=== PATIENT | female | born 1965 | race Caucasian/White ===

== ENCOUNTER 2022-05-09 08:40 | Outpatient (REF) | payer BC, SELFPAY ==
[2022-05-09 08:53] LABS: MANUAL DIFF FLAG NO
[2022-05-09 09:14] LABS: Basophils Percent Auto 0.4 % (0-2); Eosinophils Absolute Auto 0.2 X10*3/uL (0.0-0.4); Hemoglobin 14.3 g/dl (12.0-16.0); Imm Gran Abs Auto 0.02 X10*3/uL (0.00-0.03); Imm Gran Pct Auto 0.4 % (0.0-0.4); Lymphocytes Absolute Auto 1.6 X10*3/uL (1.2-4.9); Lymphocytes Percent Auto 27.7 % (20-40); Mean Corpuscular HGB Conc 33.3 g/dl (31.0-35.0); Mean Corpuscular Hemoglobin 28.9 pg (27.0-33.0); Mean Corpuscular Volume 86.9 fL (80.0-98.0); Mean Platelet Volume 10.1 fL (9.4-12.3); Monocytes Absolute Auto 0.4 X10*3/uL (0.1-1.2); Neutrophils Absolute Auto 3.5 x10*3/uL (2.0-8.3); Neutrophils Percent Auto 60.5 % (45-73); Platelet Count 171 X10*3/uL (160-400); Red Blood Count 4.95 X10*6/uL (4.20-5.50); Red Cell Distribution Width 13.1 % (11.0-16.0); White Blood Count 5.7 X10*3/uL (4.8-10.8)
[2022-05-09 09:50] LABS: Alanine Aminotransferase 25 U/L (0-31); Albumin Level 4.5 g/dL (3.5-5.0); Alkaline Phosphatase 84 U/L (39-117); Anion Gap 14 (12-20); Aspartate Amino Transferase 22 U/L (5-31); Bilirubin Total 0.7 mg/dL (0.0-1.0); Blood Urea Nitrogen 19 mg/dL (9-16); Calcium 9.3 mg/dL (8.4-10.2); Carbon Dioxide 28 mmol/L (22-29); Chloride 103 mmol/L (96-108); Cholesterol 259 mg/dL; Estimated Glomerular Filt Rate > 60; Glucose Fasting 101 mg/dL (60-99); HDL Cholesterol 45 mg/dL; LDL Cholesterol Calculated 170 mg/dl; Potassium 4.5 mmol/L (3.3-5.1); Sodium 140 mmol/L (135-145); Triglycerides 223 mg/dL
[2022-05-09 10:09] LABS: Thyroid Stimulating Hormone 0.97 uIU/mL (0.32-4.0)
== END 2022-05-09 08:41 | disposition home or self-care (01) ==
LOC: HO.LAB 08:40
PROVIDERS: PCP Internal Medicine; Visit Provider Internal Medicine
DX: E03.9 Hypothyroidism, unspecified (principal); E78.5 Hyperlipidemia, unspecified; I10 Essential (primary) hypertension; Z13.0 Encounter for screening for diseases of the blood and blood-forming organs and certain disorders involving the immune mechanism
CPT/HCPCS: 36415; 80053; 80061; 84443; 85025

== ENCOUNTER 2022-09-14 09:39 | Outpatient (AMB) | payer BC, SELFPAY ==
[2022-09-14 09:41] VITALS: BP 132/80; PULSE 62; O2SAT 95; BMI 31.6
--- NOTE | 2022-09-14 09:41 | A.OFFPC_ITS ---
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 Accompanied by: Self / Same As Patient Allergies cephalexin [From KEFLEX] Allergy (Intermediate, Verified 09/14/22 09:41) HIVES Medication List - Last Reconciled 09/14/22 by Velasquez Storm MD citalopram 20 mg PO DAILY cyclobenzaprine 5 mg PO TID PRN levothyroxine 125 mcg PO DAILY triamterene-hydrochlorothiazid 37.5-25 mg 1 tab PO DAILY Tobacco use date assessed: 09/14/22 Dental Screening Dental Screen Date: 09/14/22 Did you have a dental visit in the last 12 months?: Yes Did you have a dental problem in the last 6 months where you did not have access to dental care?: No Was dental information given to patient?: Patient has dentist HPI Rash on left side of left leg HPI Details rash on leg for a year [facility] Surgical History History of cholecystectomy Social History Housing: House Alcohol intake: current Alcohol intake frequency: a few times a month Patient Tobacco Use Status: Never used Tobacco e-Cigarette/Vaping Use: Never Used Second Hand Smoke Exposure: No service: No Current occupational status: employed 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 1. Little interest or pleasure in doing things: not at all 2. Feeling down, depressed, or hopeless: not at all 3. Trouble falling or staying asleep, or sleeping too much: not at all 4. Feeling tired or having little energy: not at all 5. Poor appetite or overeating: not at all 6. Feeling bad about yourself - or that you are a failure or have let yourself or your family down: not at all 7. Trouble concentrating on things, such as reading the newspaper or watching television: not at all 8. Moving or speaking so slowly that other people could have noticed. Or the opposite - being so fidgety or restless that you have been moving around a lot more than usual: not at all 9. Thoughts that you would be better off or of hurting yourself in some way: not at all Total score: 0 Depression Screening Interpretation: Negative Source: Developed by Drs. Han Randhawa, Samantha Ghosh, Blake Ewing and colleagues, with an educational esther from [employer]. Thrive Questionnaire Date Thrive assessed: 09/14/22 I am a: Patient What is your living situation today?: I have a steady place to live Within the past 12 months, did the food you bought not last and you didn't have the money to get more?: Never true Within the past 12 months, did you worry whether your food would run out before you got money to buy more?: Never true Do you have trouble paying for medicines?: No Do you have trouble getting transportation to medical appointments?: No Do you have trouble paying your heating and electricity bill?: No Do you have trouble taking care of your child, family member or friend?: No Do you have trouble with day-to-day activities such as bathing, preparing meals, shopping, managing finances, etc.?: No Are you currently unemployed and looking for a job?: No Are you interested in more education?: No Please select the resources that you would like help with: None Currently or been in a relationship where the following occur: no concerns reported AUDIT C Alcohol Use Questionnaire (AUDIT-C) 1. How often do you have a drink containing alcohol?: Monthly or less Total Score: 1 Score Reviewed/Action Taken: Yes IDALIA-7 AMB Questionnaire IDALIA-7 Date IDALIA - 7 assessed: 09/14/22 Feeling nervous, anxious, or on edge: 0 = Not at all Not being able to stop or control worryin = Not at all Worrying too much about different things: 0 = Not at all Trouble relaxin = Not at all Being so restless that it is hard to sit still: 0 = Not at all Becoming easily annoyed or irritable: 0 = Not at all Feeling afraid as if something awful might happen: 0 = Not at all Total IDALIA-7 score (0-4 normal; 5-9 mild; 10-14 moderate; 15-21 severe): 0 Source: Developed by Drs. Han Randhawa, Samantha Ghosh, Blake Ewing and colleagues, with an educational esther from [employer]. Review of Systems Const Denies chills, Denies headache(s) and Denies weight loss ENT Denies headache(s) Card Denies chest pain, Denies syncope, Denies irregular heart rhythm and Denies dyspnea Resp Denies chest congestion, Denies cough and Denies dyspnea GI Denies abdominal pain, Denies change in stool character, Denies nausea and Denies vomiting Musc Denies deformity and Denies joint swelling Neuro Denies syncope and Denies headache(s) Physical exam (Primary Care) Vital Signs: Last Vital Signs Pulse 62 09/14/22 09:41 BP 132/80 09/14/22 09:41 Pulse Ox 95 09/14/22 09:41 Oxygen Delivery Method Room Air 09/14/22 09:41 BMI result Body Mass Index 31.6 Tobacco/Smoking Status: Tobacco use Status Tobacco use date assessed 09/14/22 09/14/22 09:45 Patient Tobacco Use Status Never used Tobacco 09/14/22 09:45 e-Cigarette/Vaping Use Never Used 09/14/22 09:45 PHQ-9: PHQ-9 Score PHQ-9: Total score 0 09/14/22 09:45 Depression Screening Interpretation: Negative Thrive Assessment: Date of Thrive Assessment Date Thrive assessed 09/14/22 09/14/22 09:45 Currently or been in a relationship where the following occur: no concerns reported Const General: cooperative, comfortable and no acute distress Chest Chest palpation & inspection: normal inspection of the chest Resp Effort & Inspection: normal respiratory effort Auscultation: clear to auscultation bilaterally Percussion: percussion normal Cardio Jugular venous distension: no JVD Rate: regular rate Rhythm: regular rhythm Skin Other: extensive rash left leg with pustules Assessment and Plan Assessment & Plan (1) Pustular rash: Code(s): L08.0 - Pyoderma Plan: rx and derm Orders: Referrals Dermatology Referral L08.0 - Pyoderma Medications: New clotrimazole-betamethasone 1-0.05 % 1 appl topical BID 45 grams 2RF 2 weeks azithromycin take 500 mg today (day 1), then 250 mg for 4 days (days 2-5) PO 6 tabs 0RF Coding Level of Care Code Est Pt Level 3 (38306) Diagnoses Pustular rash L08.0 Additional Codes PHQ-9 - 49804 - PHQ-9 Billing: Y ([id number])
== END 2022-09-14 09:57 | disposition home or self-care (01) ==
PROVIDERS: PCP Internal Medicine; Visit Provider Internal Medicine
DX: L08.0 Pyoderma (principal)
CPT/HCPCS: 99213

== ENCOUNTER 2022-12-28 14:26 | Outpatient (AMB) | payer BC, SELFPAY ==
--- NOTE | 2022-12-28 14:27 | A.OFFPC_ITS ---
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 Accompanied by: Self / Same As Patient Allergies cephalexin [From KEFLEX] Allergy (Intermediate, Verified 12/28/22 14:30) HIVES Medication List - Last Reconciled 12/29/22 by Velasquez Storm MD azithromycin take 500 mg today (day 1), then 250 mg for 4 days (days 2-5) PO citalopram 20 mg PO DAILY clotrimazole-betamethasone 1-0.05 % 1 appl topical BID 2 weeks cyclobenzaprine 5 mg PO TID PRN levothyroxine 125 mcg PO DAILY triamterene-hydrochlorothiazid 37.5-25 mg 1 tab PO DAILY Tobacco use date assessed: 09/14/22 Dental Screening Dental Screen Date: 12/28/22 Did you have a dental visit in the last 12 months?: Yes Did you have a dental problem in the last 6 months where you did not have access to dental care?: No Was dental information given to patient?: Patient has dentist HPI Annual exam HPI Details hypothyroidism hypertension and depression on rx; doing well [facility] Surgical History History of cholecystectomy Social History Housing: House Alcohol intake: current Alcohol intake frequency: a few times a month Patient Tobacco Use Status: Never used Tobacco e-Cigarette/Vaping Use: Never Used Second Hand Smoke Exposure: No service: No Current occupational status: employed 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 1. Little interest or pleasure in doing things: not at all 2. Feeling down, depressed, or hopeless: not at all 3. Trouble falling or staying asleep, or sleeping too much: not at all 4. Feeling tired or having little energy: not at all 5. Poor appetite or overeating: not at all 6. Feeling bad about yourself - or that you are a failure or have let yourself or your family down: not at all 7. Trouble concentrating on things, such as reading the newspaper or watching television: not at all 8. Moving or speaking so slowly that other people could have noticed. Or the opposite - being so fidgety or restless that you have been moving around a lot more than usual: not at all 9. Thoughts that you would be better off or of hurting yourself in some way: not at all Total score: 0 Depression Screening Interpretation: Negative Depression Screening Done: Yes 65551 - PHQ-9 Billing: Yes Source: Developed by Drs. Han Randhawa, Samantha Ghosh, Blake Ewing and colleagues, with an educational esther from [employer]. Thrive Questionnaire Date Thrive assessed: 09/14/22 AUDIT C Alcohol Use Questionnaire (AUDIT-C) 1. How often do you have a drink containing alcohol?: Monthly or less Total Score: 1 Score Reviewed/Action Taken: Yes IDALIA-7 AMB Questionnaire IDALIA-7 Date IDALIA - 7 assessed: 09/14/22 Source: Developed by Drs. Han Randhawa, Samantha Ghosh, Blake Ewing and colleagues, with an educational esther from [employer]. Review of Systems Const Denies chills, Denies fatigue, Denies headache(s) and Denies weight loss Eyes Denies change in vision, Denies diplopia and Denies eye pain ENT Denies vertigo, Denies dizziness, Denies headache(s) and Denies nasal discharge Card Denies chest pain, Denies rapid heart rate and Denies dyspnea on exertion Resp Denies chest congestion, Denies cough, Denies pain with cough and Denies dyspnea on exertion GI Denies abdominal pain, Denies hematochezia and Denies change in bowel habits Musc Denies myalgias, Denies arthralgias and Denies joint swelling Skin/Breast Denies lesions and Denies unusual bruising Neuro Denies vertigo, Denies dizziness, Denies headache(s) and Denies focal weakness Endo Denies fatigue Physical exam (Primary Care) Vital Signs: Last Vital Signs Pulse 72 12/28/22 14:30 BP 120/68 12/28/22 14:30 Pulse Ox 97 12/28/22 14:30 Oxygen Delivery Method Room Air 12/28/22 14:30 BMI result Body Mass Index 31.6 Tobacco/Smoking Status: Tobacco use Status Tobacco use date assessed 09/14/22 12/28/22 14:28 Patient Tobacco Use Status Never used Tobacco 12/28/22 14:28 e-Cigarette/Vaping Use Never Used 12/28/22 14:28 PHQ-9: PHQ-9 Score PHQ-9: Total score 0 12/28/22 14:34 Depression Screening Interpretation: Negative Thrive Assessment: Date of Thrive Assessment Date Thrive assessed 09/14/22 12/28/22 14:28 Const General: cooperative, healthy appearing and no acute distress Orientation/consciousness: oriented to person, oriented to place and oriented to time HENMT Head: Yes normal to inspection, Yes normocephalic and Yes atraumatic Mouth: Normal oral and palatal mucosa present and tongue normal Throat: Yes posterior oropharynx normal and Yes uvula midline Eyes General: appearance normal, both eyes and all related structures Neck Neck: Yes normal visual inspection, Yes full ROM and Yes no lymphadenopathy Thyroid: Thyroid normal Carotids: normal carotid upstroke Chest Chest palpation & inspection: normal inspection of the chest Resp Effort & Inspection: normal respiratory effort and able to speak in complete sentences Auscultation: clear to auscultation bilaterally Cardio Jugular venous distension: no JVD Palpation: normal PMI Rate: regular rate Rhythm: regular rhythm Heart sounds: S1 normal heart sound present and S2 normal heart sound present GI Inspection: Yes normal to inspection Palpation (GI): Soft to palpation and No hepatosplenomegaly present Auscultation: normal bowel sounds General: Yes no CVA tenderness Back/Spine/Pelvis Back: no CVA tenderness Skin General skin exam: no rashes or lesions noted Neuro General: oriented to person, oriented to place and oriented to time Extrem General: Yes normal to inspection and Yes full ROM Assessment and Plan Assessment & Plan (1) Physical exam: Code(s): Z00.00 - Encounter for general adult medical examination without abnormal findings (2) Hypothyroidism: Code(s): E03.9 - Hypothyroidism, unspecified Plan: stable; same rx (3) Hypertension: Code(s): I10 - Essential (primary) hypertension Plan: stable; same rx (4) Depression: Code(s): F32.A - Depression, unspecified Plan: stable; same rx Orders: Orders Complete Blood Count Auto Diff Today D64.9 - Anemia, unspecified Comprehensive [place]. Panel Fast Today N28.9 - Disorder of kidney and ureter, unspecified Lipid Panel Today E78.5 - Hyperlipidemia, unspecified Thyroid Stimulating Hormone Today E03.9 - Hypothyroidism, unspecified MM tomosynthesis screen imp BI Today Z12.31 - Encounter for screening mammogram for malignant neoplasm of breast Medications: Refilled clotrimazole-betamethasone 1-0.05 % 1 appl topical BID 45 grams 2RF 2 weeks Coding Level of Care Code Est Pt Prev Care 40-64y(22322) Diagnoses Physical exam Z00.00 Hypothyroidism E03.9 Hypertension I10 Depression F32.A
[2022-12-28 14:30] VITALS: BP 120/68; PULSE 72; O2SAT 97; BMI 31.6
== END 2022-12-28 14:49 | disposition home or self-care (01) ==
PROVIDERS: PCP Internal Medicine; Visit Provider Internal Medicine
DX: Z00.00 Encounter for general adult medical examination without abnormal findings (principal); E03.9 Hypothyroidism, unspecified; I10 Essential (primary) hypertension; F32.A Depression, unspecified
CPT/HCPCS: 99396

== ENCOUNTER 2024-01-10 13:50 | Outpatient (AMB) | payer BC, SELFPAY ==
--- NOTE | 2024-01-10 13:39 | A.OFFVIS_ITS ---
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
--- NOTE | 2024-01-10 13:53 | MHC.PC.OV ---
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 Director Digital Marketing: Not Required per policy Accompanied by: Self / Same As Patient Allergies cephalexin [From KEFLEX] Allergy (Intermediate, Verified 01/10/24 13:54) HIVES Medication List - Last Reconciled 01/11/24 by Velasquez Storm MD citalopram 20 mg PO DAILY clotrimazole-betamethasone 1-0.05 % 1 appl topical BID 2 weeks cyclobenzaprine 5 mg PO TID PRN levothyroxine 125 mcg PO DAILY triamterene-hydrochlorothiazid 37.5-25 mg 1 tab PO DAILY Tobacco use date assessed: 01/10/24 Dental Screening Dental Screen Date: 01/10/24 Did you have a dental visit in the last 12 months?: Yes Did you have a dental problem in the last 6 months where you did not have access to dental care?: No Was dental information given to patient?: Patient has dentist HPI annual HPI Details hypothyroidism on rx; doing well; due for [facility] Surgical History History of cholecystectomy Social History Housing: House Alcohol intake: current Alcohol intake frequency: a few times a month Patient Tobacco Use Status: Never used Tobacco e-Cigarette/Vaping Use: Never Used Second Hand Smoke Exposure: No service: No Current occupational status: employed 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 1. Little interest or pleasure in doing things: not at all 2. Feeling down, depressed, or hopeless: not at all 3. Trouble falling or staying asleep, or sleeping too much: nearly every day 4. Feeling tired or having little energy: nearly every day 5. Poor appetite or overeating: several days 6. Feeling bad about yourself - or that you are a failure or have let yourself or your family down: not at all 7. Trouble concentrating on things, such as reading the newspaper or watching television: not at all 8. Moving or speaking so slowly that other people could have noticed. Or the opposite - being so fidgety or restless that you have been moving around a lot more than usual: not at all 9. Thoughts that you would be better off or of hurting yourself in some way: not at all Total score: 7 Depression Screening Interpretation: Positive Depression Screening Done: Yes Source: Developed by Drs. Han Randhawa, Samantha Ghosh, Blake Ewing and colleagues, with an educational esther from [employer]. Thrive Questionnaire Date Thrive assessed: 01/10/24 I am a: Patient What is your living situation today?: I have a steady place to live Within the past 12 months, did the food you bought not last and you didn't have the money to get more?: Never true Within the past 12 months, did you worry whether your food would run out before you got money to buy more?: Never true Do you have trouble paying for medicines?: No Do you have trouble getting transportation to medical appointments?: No Do you have trouble paying your heating and electricity bill?: No Do you have trouble taking care of your child, family member or friend?: No Do you have trouble with day-to-day activities such as bathing, preparing meals, shopping, managing finances, etc.?: No Are you currently unemployed and looking for a job?: No Are you interested in more education?: No Please select the resources that you would like help with: None Currently or been in a relationship where the following occur: No concerns reported THRIVE Score: 0 AUDIT C Alcohol Use Questionnaire (AUDIT-C) 1. How often do you have a drink containing alcohol?: 2-3 times a week 2. How many drinks containing alcohol do you have on a typical day when you are drinking?: 3 or 4 3. How often do you have six or more drinks on one occasion?: Less than monthly Total Score: 5 IDALIA-7 AMB Questionnaire IDALIA-7 Date IDALIA - 7 assessed: 01/10/24 Feeling nervous, anxious, or on edge: 0 = Not at all Not being able to stop or control worryin = Not at all Worrying too much about different things: 0 = Not at all Trouble relaxin = Not at all Being so restless that it is hard to sit still: 0 = Not at all Becoming easily annoyed or irritable: 1 = Several days Feeling afraid as if something awful might happen: 0 = Not at all Total IDALIA-7 score (0-4 normal; 5-9 mild; 10-14 moderate; 15-21 severe): 1 Source: Developed by Drs. Han Randhawa, Samantha Ghosh, Blake Ewing and colleagues, with an educational esther from [employer]. Review of Systems Const Denies chills, Denies fatigue, Denies headache(s) and Denies weight loss Eyes Denies change in vision, Denies diplopia and Denies eye pain ENT Denies vertigo, Denies dizziness, Denies headache(s) and Denies nasal discharge Card Denies chest pain, Denies rapid heart rate and Denies dyspnea on exertion Resp Denies chest congestion, Denies cough, Denies pain with cough and Denies dyspnea on exertion GI Denies abdominal pain, Denies hematochezia and Denies change in bowel habits Musc Denies myalgias, Denies arthralgias and Denies joint swelling Skin/Breast Denies lesions and Denies unusual bruising Neuro Denies vertigo, Denies dizziness, Denies headache(s) and Denies focal weakness Endo Denies fatigue Physical exam (Primary Care) Vital Signs: Last Vital Signs Pulse 62 01/10/24 13:54 BP 112/72 01/10/24 13:54 Pulse Ox 97 01/10/24 13:54 Oxygen Delivery Method Room Air 01/10/24 13:54 BMI result Body Mass Index 30.4 Tobacco/Smoking Status: Tobacco use Status Tobacco use date assessed 01/10/24 01/10/24 13:58 Patient Tobacco Use Status Never used Tobacco 01/10/24 13:58 e-Cigarette/Vaping Use Never Used 01/10/24 13:58 PHQ-9: PHQ-9 Score PHQ-9: Total score 7 01/10/24 14:05 Depression Screening Interpretation: Positive Thrive Assessment: Date of Thrive Assessment Date Thrive assessed 01/10/24 01/10/24 13:58 Currently or been in a relationship where the following occur: No concerns reported Const General: cooperative, healthy appearing and no acute distress Orientation/consciousness: oriented to person, oriented to place and oriented to time HENMT Head: Yes normal to inspection, Yes normocephalic and Yes atraumatic Mouth: Normal oral and palatal mucosa present and tongue normal Throat: Yes posterior oropharynx normal and Yes uvula midline Eyes General: appearance normal, both eyes and all related structures Neck Neck: Yes normal visual inspection, Yes full ROM and Yes no lymphadenopathy Thyroid: Thyroid normal Carotids: normal carotid upstroke Chest Chest palpation & inspection: normal inspection of the chest Resp Effort & Inspection: normal respiratory effort and able to speak in complete sentences Auscultation: clear to auscultation bilaterally Cardio Jugular venous distension: no JVD Palpation: normal PMI Rate: regular rate Rhythm: regular rhythm Heart sounds: S1 normal heart sound present and S2 normal heart sound present GI Inspection: Yes normal to inspection Palpation (GI): Soft to palpation and No hepatosplenomegaly present Auscultation: normal bowel sounds General: Yes no CVA tenderness Back/Spine/Pelvis Back: no CVA tenderness Skin General skin exam: no rashes or lesions noted Neuro General: oriented to person, oriented to place and oriented to time Extrem General: Yes normal to inspection and Yes full ROM Office Procedures Flu Questionnaire Does the patient have a severe egg allergy?: No Does the patient have severe life threatening allergies?: No Does the patient have a fever or illness today?: No Has the patient ever had Guillain-Tornado Syndrome?: No Has the patient ever had any past reaction to a flu shot?: No Immunizations Fluarix Triv 3754-2367 (PF) 45 mcg (15 mcg x 3)/0.5 mL IM syringe Performing Provider: Velasquez Storm MD [facility] [place] [facility] Administered by: BRIANDA Licea on 01/10/24 14:05 Dose Route Admin Location Dispensed Lot Number Expiration Date FORMERLY NAMED [facility] Outside Sales Engineer 0.5 mL IM Left Deltoid 0.5 mL [id number] 09/02/24 [id number] [place] VIS Given Date VIS Provided VIS Publication Date 01/10/24 Single Vaccine 20 Eligibility Eligibility Date Funding Source Not [facility] Eligible 11/06/24 Private Coding Level of Care Code Est Pt Prev Care 40-64y(50821) Diagnoses Physical exam Z00.00 Hypothyroidism E03.9 Assessment & Plan Assessment & Plan (1) Physical exam: Code(s): Z00.00 - Encounter for general adult medical examination without abnormal findings Category: Medical Plan: stable; same rx (2) Hypothyroidism: Code(s): E03.9 - Hypothyroidism, unspecified Category: Medical Plan: same rx Orders: Orders Complete Blood Count Auto Diff 01/10/24 Z13.0 - Encounter for screening for diseases of the blood and blood-forming organs and certain disorders involving the immune mechanism Comprehensive [place]. Panel Fast 01/10/24 Z13.9 - Encounter for screening, unspecified Lipid Panel 01/10/24 Z13.220 - Encounter for screening for lipoid disorders Thyroid Stimulating Hormone 01/10/24 Z13.29 - Encounter for screening for other suspected endocrine disorder Influenza [id number] Immunization 01/10/24 Z23 - Encounter for immunization
[2024-01-10 13:54] VITALS: BP 112/72; PULSE 62; O2SAT 97; BMI 30.4
== END 2024-01-10 14:06 | disposition home or self-care (01) ==
LOC: HO.HMCH 13:50
PROVIDERS: PCP Internal Medicine; Visit Provider Internal Medicine
DX: Z00.00 Encounter for general adult medical examination without abnormal findings (principal); E03.9 Hypothyroidism, unspecified

== ENCOUNTER → 2024-01-10 13:50 | Outpatient (BNVA) | payer BC, SELFPAY | PROVIDERS: PCP Internal Medicine; Visit Provider Internal Medicine | DX: Z00.00 Encounter for general adult medical examination without abnormal findings (principal); Z23 Encounter for immunization; E03.9 Hypothyroidism, unspecified | CPT/HCPCS: 90471; 90656; 96127 ==

== ENCOUNTER 2024-06-19 14:52 | Outpatient (REF) | payer BC, SELFPAY | END 2024-06-19 14:53 | disposition home or self-care (01) | LOC: HO.MAMMO 14:52 | PROVIDERS: PCP Internal Medicine; Visit Provider Internal Medicine | DX: Z12.31 Encounter for screening mammogram for malignant neoplasm of breast (principal) | CPT/HCPCS: 77063; 77067 ==

== ENCOUNTER → 2024-06-19 15:00 | Outpatient (BNV) | payer BC, SELFPAY | PROVIDERS: PCP Internal Medicine; Visit Provider Internal Medicine | DX: Z12.31 Encounter for screening mammogram for malignant neoplasm of breast (principal) | CPT/HCPCS: 77063; 77067 ==

== ENCOUNTER 2024-10-22 08:21 | Outpatient (AMB) | payer BC, SELFPAY ==
--- OUTSIDE RECORDS SUMMARY | 2024-10-19 23:59 | XMS_ITS | Continuity of Care Document ---
Author Organization [facility] Address [address] [address]- Care Team Providers Care Home Security Professional Name Role Phone Fitz Miles DO Brant Primary Care Physician [phone] Encounter [facility] Date(s): 09/19/24 - 10/19/24 [facility] [address] [address]- Encounter Type: Triage Allergies, Adverse Reactions, Alerts Substance Criticality Severity Reaction Reaction Severity Status Keflex Active Bactrim Active Medications aspirin 81 mg oral delayed release tablet = 81 mg, By Mouth, Daily, # 90 tablet, 3 Refills, Maintenance, 07/08/24 4:59:00 PM EDT, EC Tablet, [facility] #[id number], Partial fill upon patient request if the prescription is for a schedule II opioid drug., 163, cm, 06/25/24 11:26:00 EDT, Height, 82.3, kg, 06/11/24 12:23:00 EDT, Dry Weight Start Date: 07/08/24 Status: Ordered Quantity: 90.0 Unit: tablet Repeat number: 4 citalopram 20 mg oral tablet TAKE 1 TABLET BY MOUTH DAILY Start Date: 06/11/24 Status: Ordered Repeat number: 1 levothyroxine 125 mcg (0.125 mg) oral tablet TAKE 1 TABLET BY MOUTH DAILY Start Date: 06/11/24 Status: Ordered Repeat number: 1 metoprolol 50 mg oral tablet, extended release 50 mg, 1, tablet, By Mouth, Daily, # 90 tablet, Refills 3, Tot. Refills 3, Maintenance, 07/08/24 4:59:00 PM EDT, Route to Pharmacy Electronically, [facility] #[id number], Partial fill upon patientrequest if the prescription is for a schedule II opioid drug., 163, cm, 06/25/24 11:26:00 EDT, Height, 82.3, kg, 06/11/24 12:23:00 EDT, Dry Weight Start Date: 07/08/24 Status: Ordered Quantity: 90.0 Unit: tablet Repeat number: 4 rosuvastatin 40 mg oral tablet 1 tablet = 40 mg, By Mouth, Daily at bedtime, # 90 tablet, 3 Refills, Maintenance, 09/03/24 4:02:00 PM EDT, Tablet, [facility] #[id number], Partial fill upon patient request if the prescription isfor a schedule II opioid drug., 163, cm, 09/03/24 15:37:00 EDT, Height, 82.3, kg, 06/11/24 12:23:00EDT, Dry Weight Start Date: 09/03/24 Status: Ordered Quantity: 90.0 Unit: tablet Repeat number: 4 sacubitril-valsartan 24 mg-26 mg oral tablet 1 tablet, By Mouth, 2 times a day, # 60 tablet, 11 Refills, Maintenance, 09/13/24 3:51:00 PM EDT, Tablet, [facility], Partial fill upon patient request if the prescription is for a schedule II opioid drug., 1 tablet By Mouth 2 times a day, 163, cm, 09/03/24 15:37:00 EDT, Height, 82.3, kg, 06/11/24 12:23:00 EDT, Dry Weight Start Date: 09/13/24 Status: Ordered Quantity: 60.0 Unit: tablet Repeat number: 12 ticagrelor 90 mg oral tablet 1 tablet = 90 mg, By Mouth, 2 times a day, # 180 tablet, 3 Refills, Maintenance, 10/03/24 12:46:00 PM EDT, Tablet, [facility] #[id number], Partial fill upon patient request if the prescription isfor a schedule II opioid drug., 163, cm, 09/03/24 15:37:00 EDT, Height, 82.3, kg, 06/11/24 12:23:00EDT, Dry Weight Start Date: 10/03/24 Status: Ordered Quantity: 180.0 Unit: tablet Repeat number: 4 Social History Social History Type Response Smoking Status Never (less than 100 in lifetime) entered on: 06/11/24 Sex Sex Representation Female (finding) Patient Care team information Care Team Personnel Name: Fitz Miles DO Position: Reference Physician Member Role: PCP Address: [address] [place] [address] Internal Medicine [place], [place] [address] Telecom: Name: Serg Saini RN Position: S RN Member Role: Primary Care Nurse Insurance Providers Guarantor name: NA Health Plan Information #: 1 Payer: [facility] Payer Identifier: GREGORY Member Number: [id number] Group Number: [id number] Subscriber Identifier: [id number] Relationship to Subscriber: Spouse Coverage Type: NA Coverage Verification Date: Telecom: Address:
--- NOTE | 2024-10-22 08:32 | A.OFFVIS_ITS ---
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 Recent SD-06/2024. Currently sexually active. Denies any vaginal dryness or irritation. STI testing offered; she declined. Attempting to eat a healthy diet with calcium and vitamin D and stays active with exercise-additionally cardiac rehab. Last pap smear; 2014, negative. Last mammogram; 2024. Colonoscopy is due this year. Denies any family history of breast, ovarian or colon cancer. [facility] Medical History (Updated 10/22/24 @ 11:24 by Faina Arita CNM) Vitiligo History of heart attack Surgical History History of cholecystectomy Family History Mother No problems noted. Brother No problems noted. 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 Cognitive needs: No Hearing needs: No Vision needs: Yes (glasses) Female Reproductive History Menstrual Menopause type: natural (10 yrs ago) Total pregnancies: 3 Full term: 3 Number of Living Children: 3 Date of last pap smear: 09/12/22 History of abnormal pap smear: No History of STI: No Date of Mammogram: 06/19/24 History of abnormal mammogram: No (hx of dense breast tissue) Review of Systems Const All systems reviewed & are unremarkable except as noted in HPI and below Reports as per HPI Eyes Reports no additional complaints ENT Reports no additional complaints Card Reports no additional complaints Resp Reports no additional complaints GI Reports as per HPI and Reports no additional complaints Reports as per HPI Musc Reports no additional complaints Skin/Breast Reports as per HPI Neuro Reports no additional complaints Psych Reports no additional complaints Endo Reports no additional complaints Luis E/Lymph Reports no additional complaints Aller/Immun Reports no additional complaints Physical Exam Vital Signs: Last Vital Signs BP 98/60 10/22/24 08:33 BMI result Body Mass Index 28.1 Const General: cooperative, healthy appearing, no acute distress, well developed and alert Orientation/consciousness: patient oriented x3 HEENT Head: Yes normal to inspection Eyes General: appearance normal, both eyes and all related structures Neck Neck: Yes normal visual inspection Thyroid: Thyroid normal Chest Chest palpation & inspection: normal inspection of the chest and other (no puckering, dimpling, peau de orange, retraction, discharge, masses) Breast/axilla inspection: normal inspection of the breasts Breast/axilla palpation: normal palpation of the breasts Resp Effort & Inspection: normal respiratory effort GI Inspection: Yes normal to inspection Palpation (GI): Soft to palpation Rectal Exam - Female: deferred General: Yes bladder normal to palpation External Female Exam: normal external appearance and normal appearance of the urethra Speculum Exam - Vagina: normal appearance of the vagina, normal palpation and normal vaginal discharge Speculum Exam - Cervix: normal appearance of the cervix and normal palpation Bimanual exam- vagina & uterus: normal bimanual exam, normal palpation, uterine size normal, bladder normal to palpation, normal palpation and non-tender Bimanual Exam- Adnexa, other: no masses Skin General skin exam: no rashes or lesions noted Rashes: no rashes Neuro General: patient oriented x3 Cognition (Neuro): normal cognition Extrem General: Yes normal to inspection Psych Attitude: cooperative Thought process: Normal thought process present Assessment & Plan Assessment & Plan (1) Encounter for well woman exam with routine gynecological exam: Code(s): Z01.419 - Encounter for gynecological examination (general) (routine) without abnormal findings Category: Medical Plan Discussed: Current recommendations for pap smears per ASCCP guidelines. Pap obtained. Breast awareness, periodic self breast exams and yearly mammogram. Maintain a healthy lifestyle, well balanced diet including Calcium 1,200 mg and Vitamin D 600 IU daily, and routine exercise. Intimacy concerns, suggested book resources. Contact the office with any postmenopausal bleeding. Patient verbalizes understanding and agrees to the plan of care. She was given opportunity to ask questions and all questions were answered to the best of my ability. RTO in 1 year for annual information scientist exam. This note is constructed using voice recognition software. While every effort has been made to ensure accuracy, career technical supervisor errors may have been included. Orders: Orders HPV High risk Today Z01.419 - Encounter for gynecological examination (general) (routine) without abnormal findings Pap Smear Today Z01.419 - Encounter for gynecological examination (general) (routine) without abnormal findings Coding Level of Care Code New Pt Prev Care 40-64y(22997) Diagnoses Encounter for well woman exam with routine gynecological exam Z01.419
[2024-10-22 08:33] VITALS: BP 98/60; BMI 28.1
== END 2024-10-22 10:22 | disposition home or self-care (01) ==
LOC: HO.HWS 08:22
PROVIDERS: Visit Provider Advanced Practice Midwife
DX: Z01.419 Encounter for gynecological examination (general) (routine) without abnormal findings (principal)
CPT/HCPCS: 99386; 99459

== ENCOUNTER 2024-10-22 08:21 | Outpatient (REF) | payer BC, SELFPAY | END 2024-10-22 08:22 | disposition home or self-care (01) | LOC: HO.LNP 08:21 | PROVIDERS: Visit Provider Advanced Practice Midwife | DX: Z01.419 Encounter for gynecological examination (general) (routine) without abnormal findings (principal); Z79.899 Other long term (current) drug therapy | CPT/HCPCS: 87626; 88175 ==